=== PATIENT | male | born 2000 | race Caucasian/White ===

== ENCOUNTER 2019-12-04 02:57 | Emergency (ER) | payer BC ==
[~2019-12-04] VITALS: Ht 175.3 cm; Wt 70.0 kg
--- NOTE | 2019-12-04 03:16 | NUR ---
CHARLA CAME TO THE ED FOR ETOH INTOXICATION. REPORTS DRINKING "TOO MUCH". PT SAYS HE IS JUST NOT FEELING BETTER. PT FELL AND HIT HEAD WITH NO LOC. PT WAS DRINKING VODKA AND SELTZERS BUT AMOUNT UNKNOWN. REPORTS NO PAIN, N/V, ABD PAIN.
--- NOTE | 2019-12-04 03:35 | NUR ---
pt sleeping , rr even, unlabored, friend in room.
--- NOTE | 2019-12-04 04:08 | NUR ---
PT sleeping, calm. rr even
[2019-12-04 05:01] VITALS: BP 102/54
== END 2019-12-04 05:07 | disposition home or self-care (01) ==
LOC: ED 05:05
DX: F10.220 Alcohol dependence with intoxication, uncomplicated (principal); Y90.9 Presence of alcohol in blood, level not specified
CPT/HCPCS: 99281